=== PATIENT | male | born 1940 | race Caucasian/White ===

== ENCOUNTER 2017-12-08 09:28 | Outpatient (CLI) | payer MEDICARE, OTHER ==
[~2017-12-08] VITALS: Ht 180.3 cm; Wt 72.7 kg
[2017-12-08 09:55] LABS: BASOPHILS 0.4 % (0-2); HEMATOCRIT 39.1 % (42.0-54.0); IMMATURE GRANULOCYTES 0.2 % (0-5); LYMPHOCYTES 19.5 % (15-50); MCH 30.5 pg (26.0-34.0); MCHC 33.2 g/dL (31.0-37.0); MCV 91.8 fL (80.0-100.0); MEAN PLATELET VOLUME 10.1 fL (7.4-10.4); NEUTROPHILS 67.9 % (40-80); PLATELET COUNT 287 10x3/uL (130-400); RBC 4.26 10x6/uL (4.20-6.10); WBC 10.6 10x3/uL (4.8-10.8)
[2017-12-08 09:59] LABS: INR 1.01 (0.85-1.17); PROTIME 12.9 SECONDS (11.6-15.0)
[2017-12-08] MEDS ORDERED: PLAVIX75 MG (10:21)
[2017-12-08] MEDS ORDERED: LISINOPRIL10 MG PO (10:21)
[2017-12-08] MEDS ORDERED: CORGARD20 MG PO (10:21)
[2017-12-08] MEDS ORDERED: ASPIRIN81 MG (10:22)
[2017-12-08] MEDS ORDERED: FLOMAX0.4 MG PO (10:22)
[2017-12-08] MEDS ORDERED: TESSALON PERLE100 MG (10:23)
[2017-12-08] MEDS ORDERED: ZOCOR40 MG PO (10:23)
[2017-12-08] MEDS ORDERED: SINGULAIR10 MG PO (10:24)
[2017-12-08] MEDS ORDERED: BENADRYL25 MG PO (10:24)
[2017-12-08 10:26] VITALS: BP 108/62; Ht 180.3 cm; Wt 72.7 kg
[2017-12-09 18:09] LABS: AFB SPECIMEN PROCESSING Concentration (())
[2017-12-12 17:13] LABS: FUNGUS STAIN Final report (())
[2017-12-30 16:14] LABS: ACID FAST CULTURE Positive (()); ACID FAST SMEAR Negative (())
[2018-01-02 13:13] LABS: M TUBERCULOSIS Negative (())
[2018-01-06 11:21] LABS: FUNGUS MYCOLOGY CULTURE Final report (())
[2018-01-18 15:30] LABS: AMIKACIN 16.0 ug/mL (())
== END 2017-12-08 13:42 | disposition home or self-care (01) ==
LOC: D.OPS 09:28
PROVIDERS: Internal Medicine Pulmonary Disease
DX: R91.8 Other nonspecific abnormal finding of lung field (principal); R93.8 Abnormal findings on diagnostic imaging of other specified body structures; J44.9 Chronic obstructive pulmonary disease, unspecified; R05 Cough; Z01.812 Encounter for preprocedural laboratory examination

== ENCOUNTER → 2017-12-13 12:12 | Outpatient (CLI) | payer MEDICARE, OTHER ==
[2017-12-08 10:26] VITALS: BMI 22.3
[~2017-12-13 12:12] MED LIST: ASPIRIN81 MG; BENADRYL25 MG PO; CORGARD20 MG PO; FLOMAX0.4 MG PO; LISINOPRIL10 MG PO; PLAVIX75 MG; SINGULAIR10 MG PO; TESSALON PERLE100 MG; ZOCOR40 MG PO
[2017-12-13 14:29] LABS: BASOPHILS 0.5 % (0-2); EOSINOPHILS 3.1 % (0-7); HEMATOCRIT 37.9 % (42.0-54.0); HEMOGLOBIN 12.6 g/dL (13.5-17.5); IMMATURE GRANULOCYTES 0.2 % (0-5); LYMPHOCYTES 27.8 % (15-50); MCH 30.4 pg (26.0-34.0); MCHC 33.2 g/dL (31.0-37.0); MCV 91.5 fL (80.0-100.0); MEAN PLATELET VOLUME 9.8 fL (7.4-10.4); NEUTROPHILS 58.4 % (40-80); PLATELET COUNT 340 10x3/uL (130-400); RBC 4.14 10x6/uL (4.20-6.10); RDW 12.6 % (11.5-14.5); WBC 8.5 10x3/uL (4.8-10.8)
[2017-12-14 17:16] LABS: ANA REFLEX - ANTICHROMATIN ABS <0.2 AI (0.0-0.9); ANA REFLEX - CENTROMERE B ABS <0.2 AI (0.0-0.9); ANA REFLEX - DBL STRANDED DNA 1 IU/mL (0-9); ANA REFLEX - DIRECT Positive (Negative); ANA REFLEX - JO-1 AB <0.2 AI (0.0-0.9); ANA REFLEX - RNP ANTIBODIES 2.1 AI (0.0-0.9); ANA REFLEX - SCL-70 <0.2 AI (0.0-0.9); ANA REFLEX - SJOGRENS AB SSA <0.2 AI (0.0-0.9); ANA REFLEX - SJOGRENS AB SSB <0.2 AI (0.0-0.9); ANA REFLEX - SMITH AB <0.2 AI (0.0-0.9)
[2017-12-15 03:12] LABS: ANGIOTENSIN CONVERTING ENZYME 19 U/L (14-82)
[2017-12-16 07:29] LABS: IMMUNOGLOBULIN E 94 IU/mL (0-100)
== END | disposition home or self-care (01) ==
LOC: D.RT 12:12
PROVIDERS: Internal Medicine Pulmonary Disease
DX: J44.9 Chronic obstructive pulmonary disease, unspecified (principal); R93.8 Abnormal findings on diagnostic imaging of other specified body structures

== ENCOUNTER → 2018-04-18 10:13 | Outpatient (CLI) | payer MEDICARE, OTHER ==
[2017-12-08 10:26] VITALS: BMI 22.3
== END | disposition home or self-care (01) ==
LOC: D.CT 04-10 10:30
DX: R93.89 Abnormal findings on diagnostic imaging of other specified body structures (principal)

== ENCOUNTER → 2018-04-21 10:33 | Outpatient (CLI) | payer MEDICARE, OTHER ==
[2017-12-08 10:26] VITALS: BMI 22.3
[2018-04-21 14:27] LABS: BASOPHILS 0.9 % (0-2); EOSINOPHILS 4.7 % (0-7); HEMATOCRIT 39.6 % (42.0-54.0); HEMOGLOBIN 12.9 g/dL (13.5-17.5); LYMPHOCYTES 42.2 % (15-50); MCH 29.9 pg (26.0-34.0); MCHC 32.6 g/dL (31.0-37.0); MCV 91.7 fL (80.0-100.0); MEAN PLATELET VOLUME 10.7 fL (7.4-10.4); MONOCYTES 13.7 % (2-11); NEUTROPHILS 38.5 % (40-80); RBC 4.32 10x6/uL (4.20-6.10); RDW 13.9 % (11.5-14.5); WBC 5.5 10x3/uL (4.8-10.8)
[2018-04-21 14:28] LABS: PLATELET COUNT 216 10x3/uL (130-400)
[2018-04-21 15:27] LABS: ALBUMIN 3.1 g/dL (3.4-5.0); ANION GAP 15.2 mmol/L (8-16); BILIRUBIN - TOTAL 0.29 mg/dL (0.2-1.3); CALCIUM 8.8 mg/dL (8.5-10.1); CARBON DIOXIDE 26.5 mmol/L (21.0-32.0); CREATININE - SERUM 1.1 mg/dL (0.6-1.3); POTASSIUM - SERUM 4.7 mmol/L (3.5-5.1); PROTEIN - SERUM 7.3 g/dL (6.4-8.2)
== END | disposition home or self-care (01) ==
LOC: D.LABREF 10:33
PROVIDERS: Student in an Organized Health Care Education/Training Program
DX: Z51.81 Encounter for therapeutic drug level monitoring (principal); Z79.2 Long term (current) use of antibiotics

== ENCOUNTER → 2018-08-04 14:30 | Outpatient (CLI) | payer MEDICARE, OTHER ==
[2017-12-08 10:26] VITALS: BMI 22.3
[2018-08-04 15:36] LABS: BASOPHILS 0.5 % (0-2); EOSINOPHILS 4.8 % (0-7); HEMATOCRIT 40.9 % (42.0-54.0); HEMOGLOBIN 13.7 g/dL (13.5-17.5); IMMATURE GRANULOCYTES 0.2 % (0-5); LYMPHOCYTES 46.3 % (15-50); MCH 31.2 pg (26.0-34.0); MCHC 33.5 g/dL (31.0-37.0); MCV 93.2 fL (80.0-100.0); MONOCYTES 14.2 % (2-11); PLATELET COUNT 224 10x3/uL (130-400); RBC 4.39 10x6/uL (4.20-6.10); RDW 12.7 % (11.5-14.5); WBC 5.8 10x3/uL (4.8-10.8)
[2018-08-04 15:56] LABS: ALBUMIN 3.6 g/dL (3.4-5.0); ANION GAP 7.9 mmol/L (8-16); BILIRUBIN - TOTAL 0.35 mg/dL (0.2-1.3); CALCIUM 8.8 mg/dL (8.5-10.1); CARBON DIOXIDE 32.5 mmol/L (21.0-32.0); CREATININE - SERUM 1.1 mg/dL (0.6-1.3); POTASSIUM - SERUM 5.4 mmol/L (3.5-5.1); PROTEIN - SERUM 7.5 g/dL (6.4-8.2)
== END | disposition home or self-care (01) ==
LOC: D.LABREF 14:30
PROVIDERS: ATTEND Student in an Organized Health Care Education/Training Program
DX: Z51.81 Encounter for therapeutic drug level monitoring (principal); Z79.2 Long term (current) use of antibiotics

== ENCOUNTER → 2018-10-17 13:22 | Outpatient (CLI) | payer MEDICARE, OTHER ==
[2017-12-08 10:26] VITALS: BMI 22.3
== END | disposition home or self-care (01) ==
LOC: D.CT 13:22
PROVIDERS: ATTEND Student in an Organized Health Care Education/Training Program
DX: A31.0 Pulmonary mycobacterial infection (principal)

== ENCOUNTER → 2018-10-18 17:45 | Outpatient (CLI) | payer MEDICARE | END | disposition home or self-care (01) | LOC: D.LABREF 17:45 | DX: Z51.81 Encounter for therapeutic drug level monitoring (principal); Z79.2 Long term (current) use of antibiotics ==

== ENCOUNTER → 2018-12-12 18:48 | Outpatient (CLI) | payer MEDICARE ==
[2017-12-08 10:26] VITALS: BMI 22.3
[2018-12-12 19:57] LABS: BASOPHILS 0.5 % (0-2); EOSINOPHILS 3.1 % (0-7); HEMATOCRIT 41.3 % (42.0-54.0); HEMOGLOBIN 14.3 g/dL (13.5-17.5); IMMATURE GRANULOCYTES 0.1 % (0-5); LYMPHOCYTES 39.2 % (15-50); MCH 31.9 pg (26.0-34.0); MCHC 34.6 g/dL (31.0-37.0); MCV 92.2 fL (80.0-100.0); MEAN PLATELET VOLUME 10.8 fL (7.4-10.4); NEUTROPHILS 46.1 % (40-80); PLATELET COUNT 245 10x3/uL (130-400); RBC 4.48 10x6/uL (4.20-6.10); RDW 12.6 % (11.5-14.5); WBC 7.7 10x3/uL (4.8-10.8)
[2018-12-12 20:18] LABS: ALBUMIN 3.7 g/dL (3.4-5.0); ANION GAP 9.1 mmol/L (8-16); BILIRUBIN - TOTAL 0.42 mg/dL (0.2-1.3); CALCIUM 9.2 mg/dL (8.5-10.1); CARBON DIOXIDE 31.2 mmol/L (21.0-32.0); CREATININE - SERUM 1.2 mg/dL (0.6-1.3); POTASSIUM - SERUM 5.3 mmol/L (3.5-5.1); PROTEIN - SERUM 7.4 g/dL (6.4-8.2)
== END | disposition home or self-care (01) ==
LOC: D.LABREF 18:48
PROVIDERS: ATTEND Internal Medicine Pulmonary Disease
DX: A31.0 Pulmonary mycobacterial infection (principal)

== ENCOUNTER → 2019-02-20 10:39 | Outpatient (CLI) | payer MEDICARE, OTHER ==
[2017-12-08 10:26] VITALS: BMI 22.3
[2019-02-20 12:01] LABS: BASOPHILS 0.5 % (0-2); EOSINOPHILS 3.3 % (0-7); HEMATOCRIT 40.6 % (42.0-54.0); HEMOGLOBIN 13.7 g/dL (13.5-17.5); MCH 31.5 pg (26.0-34.0); MCHC 33.7 g/dL (31.0-37.0); MCV 93.3 fL (80.0-100.0); MEAN PLATELET VOLUME 10.3 fL (7.4-10.4); MONOCYTES 11.3 % (2-11); NEUTROPHILS 46.9 % (40-80); PLATELET COUNT 206 10x3/uL (130-400); RBC 4.35 10x6/uL (4.20-6.10); RDW 12.4 % (11.5-14.5); WBC 6.7 10x3/uL (4.8-10.8)
[2019-02-20 12:32] LABS: ALBUMIN 3.6 g/dL (3.4-5.0); ALKALINE PHOSPHATASE 63 U/L (46-116); ALT (SGPT) 20 U/L (10-68); BILIRUBIN - TOTAL 0.33 mg/dL (0.2-1.3); CALC OSMOLALITY 279 mosm/kg (275-300); CALCIUM 8.9 mg/dL (8.5-10.1); CARBON DIOXIDE 31.3 mmol/L (21.0-32.0); CHLORIDE - SERUM 103 mmol/L (98-107); GLUCOSE 98 mg/dL (74-106); POTASSIUM - SERUM 4.7 mmol/L (3.5-5.1); PROTEIN - SERUM 7.3 g/dL (6.4-8.2); SODIUM 139 mmol/L (136-145); UREA NITROGEN 17 mg/dL (7-18); eGFR NON AFRICAN AMERICAN 76 mL/min (90-120)
== END | disposition home or self-care (01) ==
LOC: D.LAB 10:39 → D.RAD 11:45
PROVIDERS: ATTEND Internal Medicine Pulmonary Disease
DX: A31.0 Pulmonary mycobacterial infection (principal)

== ENCOUNTER → 2019-05-28 10:13 | Outpatient (CLI) | payer MEDICARE, OTHER ==
[2017-12-08 10:26] VITALS: BMI 22.3
[2019-05-28 10:48] LABS: BASOPHILS 0.5 % (0-2); HEMATOCRIT 41.5 % (42.0-54.0); HEMOGLOBIN 13.7 g/dL (13.5-17.5); IMMATURE GRANULOCYTES 0.2 % (0-5); LYMPHOCYTES 39.3 % (15-50); MCH 31.3 pg (26.0-34.0); MCV 94.7 fL (80.0-100.0); MEAN PLATELET VOLUME 10.6 fL (7.4-10.4); MONOCYTES 15.4 % (2-11); NEUTROPHILS 40.6 % (40-80); PLATELET COUNT 192 10x3/uL (130-400); RBC 4.38 10x6/uL (4.20-6.10); RDW 12.7 % (11.5-14.5); WBC 5.7 10x3/uL (4.8-10.8)
[2019-05-28 10:51] LABS: ALBUMIN 3.4 g/dL (3.4-5.0); ANION GAP 7.6 mmol/L (8-16); BILIRUBIN - TOTAL 0.53 mg/dL (0.2-1.3); CALCIUM 8.5 mg/dL (8.5-10.1); CREATININE - SERUM 1.2 mg/dL (0.6-1.3); POTASSIUM - SERUM 4.6 mmol/L (3.5-5.1); PROTEIN - SERUM 7.3 g/dL (6.4-8.2)
== END | disposition home or self-care (01) ==
LOC: D.LAB 10:13
PROVIDERS: ATTEND Internal Medicine Pulmonary Disease
DX: A31.0 Pulmonary mycobacterial infection (principal)

== ENCOUNTER → 2019-06-21 14:33 | Outpatient (CLI) | payer MEDICARE, OTHER ==
[2017-12-08 10:26] VITALS: BMI 22.3
== END | disposition home or self-care (01) ==
LOC: D.RT 14:33
PROVIDERS: ATTEND Internal Medicine Pulmonary Disease
DX: J44.9 Chronic obstructive pulmonary disease, unspecified (principal)

== ENCOUNTER 2019-08-19 17:13 | Emergency (ER) | payer MEDICARE, OTHER ==
[~2019-08-19] VITALS: Ht 180.3 cm; Wt 81.4 kg
[2019-08-19 17:19] VITALS: Ht 180.3 cm; Wt 81.4 kg
== END 2019-08-19 18:36 | disposition other institution (70) ==
LOC: D.ER 17:13
DX: N13.9 Obstructive and reflux uropathy, unspecified (principal); I10 Essential (primary) hypertension

== ENCOUNTER → 2020-01-03 07:51 | Outpatient (CLI) | payer MEDICARE, OTHER ==
[2019-08-19 17:19] VITALS: BMI 25.0
== END | disposition home or self-care (01) ==
LOC: D.LAB 07:51
PROVIDERS: ATTEND Internal Medicine Pulmonary Disease
DX: Z11.59 Encounter for screening for other viral diseases (principal)

== ENCOUNTER → 2020-10-27 13:17 | Outpatient (CLI) | payer MEDICARE, OTHER ==
[2019-08-19 17:19] VITALS: BMI 25.0
== END | disposition home or self-care (01) ==
LOC: D.LAB 13:17
PROVIDERS: ATTEND Internal Medicine Pulmonary Disease
DX: E88.01 Alpha-1-antitrypsin deficiency (principal); Z11.52 Encounter for screening for COVID-19

== ENCOUNTER → 2020-10-31 13:28 | Outpatient (CLI) | payer MEDICARE, OTHER ==
[2019-08-19 17:19] VITALS: BMI 25.0
== END | disposition home or self-care (01) ==
LOC: D.RAD 13:15 → D.LAB 13:15 → D.RAD 13:28 → D.RT 13:30
PROVIDERS: ATTEND Internal Medicine Pulmonary Disease
DX: J44.9 Chronic obstructive pulmonary disease, unspecified (principal); A31.0 Pulmonary mycobacterial infection; E88.01 Alpha-1-antitrypsin deficiency; Z11.52 Encounter for screening for COVID-19